=== PATIENT | male | born 1960 | race Caucasian/White ===

== ENCOUNTER 2023-11-14 22:47 | Emergency (ER) | payer MEDICARE, SELFPAY ==
[2023-11-14 22:59] VITALS: BP 158/99
[2023-11-14 23:00] VITALS: BP 158/99
[2023-11-14 23:04] VITALS: BMI 33.6
--- NOTE | 2023-11-14 23:12 | ED.GENMED ---
History of Present Illness
General
Chief Complaint: Chest Pain
Source: patient
Exam Limitations: none
Time Seen by Provider: 11/14/23 22:57
Nursing documentation reviewed up to this point in time: agreed with
Travel History
Have you had any contact with someone who has COVID-19?: No
Do you have any symptoms of coronavirus? Fever > 100 degrees, chills, cough, shortness of breath, sore throat, loss of taste or smell, muscle aches, or headache?: No
History of Present Illness
History of Present Illness:
Vital signs are stable. Patient not hypoxic
Nursing note reviewed. I agree with nursing documentation up to this point in time.
Home Meds and allergies reviewed.
NUMBER AND COMPLEXITY OF PROBLEMS ADDRESSED AT THE ENCOUNTER
� Chronic conditions affecting care:
� Acute Exacerbation and/or Progression of Chronic Illness:
� Differential Diagnosis includes: A-fib with RVR, sinus tachycardia,
AMOUNT AND/OR COMPLEXITY OF DATA TO BE REVIEWED AND ANALYZED
I performed an independent evaluation of the following and my interpretation is:
EKG: EKG shows atrial fibrillation with rapid ventricular response rate of 163. Otherwise left axis deviation. No evidence of acute ischemia present. When compared with previous EKG dated July 03, 2018, atrial fibrillation
has replaced sinus rhythm.
CT:
X-rays:
Ultrasound:
Laboratory Studies: 18.0 white blood cell count
Other:
Review of other/old records:
Clinical information was obtained by an independent historian:
Prescriptions/Medications Considered but not given:
Further testing considered but not performed:
RISK OF COMPLICATIONS AND/OR MORBIDITY OR MORTALITY OF PATIENT MANAGEMENT
Social determinants of health affecting care: Good Social Support
Discussion with other providers:
Escalation of care including admission/observation vs risk of discharge considered:
CRITICAL CARE NOTE:
Total Time (exclusive of procedures):
Update:
Past History
Past History
ED Past Medical History: HTN, Hypercholesterolemia and NIDDM
ED Past Surgical History: Orthopedic (Bilateral knee surgery) and Tonsilectomy
Social History
Tobacco: Smoker (1/2 pack daily)
Alcohol: None
Drug: None
Personal: Single
Living: alone
Employment: Employed
Review of Systems
Review of Systems
Allergies reviewed?: Yes
All Other Systems: ROS reviewed and negative except as documented in HPI and ROS
Cardiac: Reports palpitations
Phy Exam
General Physical Exam
General Presentation: well appearing and no apparent distress
General Skin: warm and dry
General Habitus: normal
General Mental: alert
General Hydration: appears well hydrated
ENT Exam
ENT Exam: EOMI, pharynx normal, neck supple and normocephalic
Eye Exam
Eye Exam: PERRL, cornea clear and conjunctiva normal
Cardiovascular Exam
Cardiovascular Exam: irregularly irregular and tachycardia
Pulmonary Exam
Pulmonary Exam: lungs clear, no respiratory distress, no rales, no crackles, no rhonchi, no stridor, no wheezing and no cough
Gastrointestinal Exam
Gastrointestinal Exam: normal bowel sounds, non tender, soft, no organomegaly, no pulsatile mass and non distended
Neurological Exam
Neurological Exam: alert
Musculoskeletal Exam
Musculoskeletal Exam: full ROM and no edema
Skin Exam
Skin Exam: normal color, warm/dry, no rash and no petechia
Psychiatric Exam
Psychiatric Exam: normal mood/affect
Scores
[id number] Score for Afib Stroke Risk
Age in Years (65=0, 65-74=1, >/=75=2): <65
Sex (Female=+1): Male
Congestive Heart Failure History (Yes=+1): No
Hypertension History (Yes=+1): Yes
Stroke/TIA/Thromboembolism History (Yes=+2): No
Vascular Disease History (Yes=+1): No
Diabetes Mellitus (Yes=+1): Yes
Score: 2
Anticoagulation Recommendations: Recommend anticoagulation (as validated in nonvalvular fib)
Heart Score for Chest Pain Patients
STEMI patient?: Not applicable
Course
Orders/Labs/Results
Orders:
Orders
11/14/23 22:50
Electrocardiogram (*1) Urgent
Reason for Study: Chest Pain
EKG- Treatment ONCE
11/14/23 23:10
Cardiac Monitoring- Treatment ONCE
0.9% Sodium Chloride 1000 ml [Nss] 1,000 ml IV BOLUS
Diltiazem HCl [Cardizem] 20 mg IV NOW STA
11/14/23 23:11
CR Chest - 2 Views Urgent
Comment:
Reason For Exam: cp
11/14/23 23:13
Complete Blood Count/With Diff Urgent
Comprehensive Metabolic Panel Urgent
Magnesium Urgent
NT-proBNP Urgent
PTT Urgent
Prothrombin Time Urgent
TSH Urgent
Troponin I Urgent
11/14/23 23:15
Diltiazem 125 mg/125 ml Nss [Cardizem] 125 mg in 125 ml IV PER PROTOCOL
Initial dose in mg/hr, then titrate:: 5
Titrate to keep:: Heart rate 80-100 bpm
Titrate by mg/hr:: 5 mg/hr
Frequency of titrations (minutes):: 15
Maximum dose in mg/hr:: 15
11/15/23 00:35
EKG [Electrocardiogram (*1)] Urgent
Reason for Study: Other
Other Reason for Exam: Rhythm Change
11/15/23 00:36
EKG- Treatment ONCE
11/15/23 01:53
Rivaroxaban [Xarelto] 20 mg PO NOW STA
Abnormal Lab Results
03/14/24
23:13
WBC 18.0 H 10^3/uL
(4.8-10.8)
Abs Immat Gran (auto) 0.1 H 10^3/uL
(0-0.05)
Absolute Neuts (auto) 8.4 H 10^3/uL
(1.4-6.5)
Absolute Lymphs (auto) 7.6 H 10^3/uL
(1.2-3.4)
Absolute Monos (auto) 1.1 H 10^3/uL
(0.1-0.6)
Glucose 159 H mg/dl
(70-99)
Magnesium 1.3 L mg/dl
(1.6-2.3)
11/14/23 23:13
11/14/23 23:13
Vital Signs
Initial and Last Documented VS:
Initial Vital Signs
Temp Pulse Resp BP Pulse Ox
98.8 F 113 16 158/99 98
11/14/23 22:59 11/14/23 22:59 11/14/23 22:59 11/14/23 22:59 11/14/23 22:59
Last Documented Vital Signs
Temp Pulse Resp BP Pulse Ox
98.8 F 81 21 145/90 97
11/14/23 22:59 11/15/23 02:15 11/15/23 02:15 11/15/23 02:00 11/15/23 02:15
*Pulse Oximetry
Patient hypoxic: no
*Critical Care Note
Total Time (30-74mins, 75-104mins- exclusive of procedures): 31
comment:
Critical care statement: A total of 31 minutes of critical care time was provided for this patient. This time is separate from time utilized to perform the aforementioned documented procedures. Aggregate critical care time includes only time
during which I was engaged in work directly related to the patient's care, as described above, whether at the bedside or elsewhere in the Emergency Department.
Update Note
Update Note:
11/15/2023 0052 AM: Repeat EKG shows normal sinus rhythm rate of 89 with normal intervals, indeterminate axis. No evidence of acute ischemia present.
11/15/2023 0059 AM: Spoke with Dr. Ruiz, [facility] cardiology who reviewed the case. He agrees with plan to discharge to home now the patient is in sinus rhythm. His Primitivo Vasc score suggest the patient be started on Xarelto. He is in
agreement. He request that we add Cardizem CD 120 mg daily.
ED Attending Note
-
Portions of this chart may have been created with voice recognition software.� Occasional wrong word or��sound alike� substitutions may have occurred due to the inherent limitations of voice recognition software.
Discharge Plan
Departure
Patient Disposition: Home (Routine Discharge)
Date of Disposition: 11/15/23
Time of Disposition: 01:58
Patient with high blood pressure during this ER visit?: Yes
Condition: Good
Discharge Problem:
Atrial fibrillation with RVR
Instructions: Atrial Fibrillation (DC), BLOOD PRESSURE
Prescriptions:
New
diltiazem HCl [Cardizem CD] 120 mg capsule,extended release 24hr
120 mg PO DAILY Qty: 30 0RF
Xarelto 20 mg tablet
20 mg PO QPM Qty: 15 0RF
No Action
levofloxacin 500 MG tablet
500 mg PO DAILY Qty: 9 0RF
metronidazole 500 MG tablet
500 mg PO TID Qty: 29 0RF
Referrals:
Leno Ruiz MD [Active] -
UNKNOWN - PT DOES,NOT KNOW [Unknown Provider] -
Activity Restrictions/Additional Instructions:
Your prescriptions were sent electronically to the pharmacy that you specified.
It was a pleasure meeting you and taking part in your care. We hope for your continued healing and wellness.
Please read discharge instructions in their entirety. However, they are for general education and may not describe your exact diagnosis at discharge. Information on your ER visit and medical conditions were discussed with you along with appropriate
follow up information...
If indicated, please take your medications as instructed and indicated on discharge paperwork.
Please schedule a follow up appointment as directed. Call to schedule an appointment
Please return to the emergency department with ANY change in, persisting, or worsening of symptoms. If any of your symptoms do not improve, or persist, or become more severe within 6-12 hours, please return to the emergency department for further
care.
Please return to the emergency department if you develop a headache, neck pain/stiffness, fever greater than 100.4F, chest pain, shortness of breath, persistent nausea, vomiting, slurred speech, difficulty walking, numbness/tingling, weakness, signs
of infection or any other symptoms that are worrisome to you.
If you have any questions or concerns please do not hesitate to call the Hospital at or E-mail me directly at [email or web address]
Interventions
Interventions:
*Risk Screen - Suicide Last Done: 11/14/23 23:02
*General Assessment Last Done: 11/14/23 23:02
*Neglect/Abuse Screening Last Done: 11/14/23 23:02
ED- Fall Risk Assessment Last Done: 11/14/23 23:03
*ED COVID-19 Vaccine History Last Done: 11/14/23 23:01
*Nursing Disposition Last Done: 11/15/23 02:44
ED- Cardiac Assessment Last Done: 11/14/23 23:03
Discharge Date and Time
Discharge Date/Time: 11/15/23 02:45
[2023-11-14] MEDS: CARDIZEM 20 MG IV (23:16)
[2023-11-14 23:18] LABS: % Basophils 0.6 % (0-2); % Eosinophils 3.2 % (0-6); % Immature Granulocytes 0.4 % (0-0.5); % Lymphocytes 42.5 % (20.5-51.1); % Monocytes 6.3 % (1.7-9.3); Absolute Basophils 0.1 10^3/uL (0-0.2); Absolute Eosinophils 0.6 10^3/uL (0-0.7); Absolute Immature Granulocytes 0.1 10^3/uL (0-0.05); Absolute Lymphocytes 7.6 10^3/uL (1.2-3.4); Absolute Monocytes 1.1 10^3/uL (0.1-0.6); Absolute Neutrophils 8.4 10^3/uL (1.4-6.5); Hematocrit 40.7 % (39.0-52.0); Mean Corp Hgb Conc. 34.4 g/dL (33.0-37.0); Mean Corpuscular Hgb 28.6 pg (27.0-31.0); Mean Corpuscular Volume 83.2 fL (80.0-94.0); Nucleated Red Blood Cells % 0 % (-); Platelet Count 343 10^3/uL (130-400); Red Blood Cell Count 4.89 10^6/uL (4.70-6.10); Red Cell Dist. Width 12.8 % (11.5-14.5)
[2023-11-14] MEDS: NSS 1000 IV (23:20)
[2023-11-14 23:21] VITALS: BP 121/81
[2023-11-14] MEDS: CARDIZEM 125 IV (23:23)
[2023-11-14 23:35] LABS: INR 0.93; PT 12.4 Sec (11.4-14.6)
[2023-11-14 23:36] LABS: APTT 29.2 Sec (23.4-35.0)
[2023-11-14 23:37] LABS: ALT (SGPT) 33 U/L (0-50); AST (SGOT) 33 U/L (17-59); Albumin 4.6 g/dl (3.5-5.0); Alkaline Phosphatase 94 U/L (38-126); Blood Urea Nitrogen 17 mg/dl (9-20); Calcium 9.5 mg/dl (8.4-10.2); Carbon Dioxide 24 mmol/L (22-30); Chloride 101 mmol/L (98-107); Estimated Creatinine Clearance > 125 ml/min; Glucose 159 mg/dl (70-99); Magnesium 1.3 mg/dl (1.6-2.3); Potassium 3.7 mmol/L (3.5-5.1); Sodium 135 mmol/L (135-145); Total Bilirubin 0.4 mg/dl (0.2-1.3); Total Protein 7.8 g/dl (6.3-8.2); eGFR > 60.00
[2023-11-15 00:05] VITALS: BP 139/83
[2023-11-15 00:08] LABS: NT-proBNP 53.4 pg/ml; Troponin I < 0.012 ng/ml
[2023-11-15 00:09] LABS: TSH 3.28 uIU/ml (0.47-4.68)
[2023-11-15 01:00] VITALS: BP 134/85
[2023-11-15 02:00] VITALS: BP 145/90
[2023-11-15] MEDS: XARELTO 20 MG PO (02:15)
== END 2023-11-15 02:45 | disposition home or self-care (01) ==
LOC: EMR 22:47
PROVIDERS: EMERGENCY PHYSICIAN Student in an Organized Health Care Education/Training Program; FAMILY PHYSICIAN Family Medicine
DX: R07.89 Other chest pain (principal); I48.91 Unspecified atrial fibrillation; E11.9 Type 2 diabetes mellitus without complications; E78.00 Pure hypercholesterolemia, unspecified; F17.200 Nicotine dependence, unspecified, uncomplicated; Z79.01 Long term (current) use of anticoagulants
CPT/HCPCS: 99283; 96374; 96376; 96361; 71046; 80053; 83735; 83880; 84443; 84484; 85025; 85610; 85730; 93005

== ENCOUNTER → 2024-02-04 07:17 | Outpatient (REF) | payer MEDICARE, SELFPAY | LOC: DHCBC/DCA 07:17 | PROVIDERS: ATTENDING PHYSICIAN Internal Medicine; FAMILY PHYSICIAN Family Medicine | DX: I48.0 Paroxysmal atrial fibrillation (principal); R07.9 Chest pain, unspecified | CPT/HCPCS: 78452; 93017; A9500; J2785 ==

== ENCOUNTER → 2024-02-05 14:08 | Outpatient (REF) | payer MEDICARE, SELFPAY | LOC: RCS 14:08 | PROVIDERS: ATTENDING PHYSICIAN Internal Medicine; FAMILY PHYSICIAN Family Medicine | DX: I48.0 Paroxysmal atrial fibrillation (principal); R07.9 Chest pain, unspecified | CPT/HCPCS: 93306; Q9950 ==